=== PATIENT | male | born 1940 | race Caucasian/White ===

== ENCOUNTER 2017-09-15 11:00 | Inpatient (IN) | payer MEDICARE, OTHER ==
[2017-09-28] MEDS ORDERED: VANCOMYCIN HCL 1,000 MG in 0.9 % SODIUM CHLORIDE 250ML 250 ML IVPB ONE (06:00)
[2017-09-28] MEDS ORDERED: FAMOTIDINE 20MG TABLET PO ONE (06:00)
[2017-09-28] MEDS ORDERED: ACETAMINOPHEN 1,000 MG/100 ML BTL IV ONE (06:00)
[2017-09-28] MEDS ORDERED: METOCLOPRAMIDE 10 MG TABLET PO ONE (06:00)
[2017-09-28] MEDS ORDERED: MECLIZINE 25 MG TABLET PO ONE (06:00)
[2017-09-28] MEDS ORDERED: CELECOXIB 100 MG CAPSULE PO ONE (06:00)
[2017-09-28] MEDS ORDERED: BUPIVACAINE LIPOSOME 266MG/20ML VIAL IV ONE (09:59)
[2017-09-28] MEDS ORDERED: VANCOMYCIN HCL 1 GM VIAL IVPB ONE (09:59)
[2017-09-28] MEDS ORDERED: BUPIVACAINE 0.5% W/EPI MPF 30 ML VIAL IVP ONE (09:59)
[2017-09-28] MEDS ORDERED: TRANEXAMIC ACID 1,000 MG/10 ML ML IV ONE (09:59)
[2017-09-28] MEDS ORDERED: TRAMADOL HCL 50 MG TABLET PO PRN ×2 (12:54)
[2017-09-28] MEDS ORDERED: KETOROLAC 30 MG/ML VIAL IVP PRN ×2 (12:54)
[2017-09-28] MEDS ORDERED: DEXTROSE 5 % AND 0.9 % NACL 1,000 ML IV PRN (12:54)
[2017-09-28] MEDS ORDERED: ONDANSETRON HCL IV 4 MG/2 ML VIAL IVP PRN (12:54)
[2017-09-28] MEDS ORDERED: ACETAMINOPHEN 325 MG TAB PO PRN (12:54)
[2017-09-28] MEDS ORDERED: ACETAMINOPHEN W/ CODEINE 300MG/60MG TABLET PO PRN ×2 (12:54)
[2017-09-28] MEDS ORDERED: ZOLPIDEM TARTRATE 5 MG TABLET PO PRN (12:54)
[2017-09-28] MEDS ORDERED: HYDROCODONE/APAP 7.5/325MG TABLET PO PRN ×2 (12:54)
[2017-09-28] MEDS ORDERED: MAGNESIUM HYDROXIDE 30 ML UDC PO PRN (12:54)
[2017-09-28] MEDS ORDERED: MORPHINE SULFATE 5 MG/ML PFS IVP PRN ×4 (12:54)
[2017-09-28] MEDS ORDERED: DIPHENHYDRAMINE HCL 25 MG CAPSULE PO PRN (12:54)
[2017-09-28] MEDS ORDERED: HYDROMORPHONE HCL 2 MG/ML VIAL IM PRN (12:54)
[2017-09-28] MEDS ORDERED: HYDROCODONE/APAP 5/325MG TABLET PO PRN ×2 (12:54)
[2017-09-28] MEDS ORDERED: ACETAMINOPHEN W/ CODEINE 300MG/30MG TABLET PO PRN ×2 (12:54)
[2017-09-28] MEDS ORDERED: PROMETHAZINE HCL 12.5 MG in 0.9 % SODIUM CHLORIDE 100ML 50 ML IVPB PRN (12:54)
[2017-09-28] MEDS ORDERED: AL HYDROX/MAG HYDROX 30ML UD PO PRN (12:54)
[2017-09-28] MEDS ORDERED: NALOXONE 0.4 MG/1 ML VIAL IVP PRN (12:54)
[2017-09-28] MEDS ORDERED: HYDROMORPHONE HCL 1MG/ML **SYRINGE IM PRN (12:54)
[2017-09-28] MEDS ORDERED: BISACODYL 10 MG SUPP RC PRN (12:54)
[2017-09-28] MEDS ORDERED: METOCLOPRAMIDE HCL 10 MG/2 ML VIAL IVP PRN (12:54)
[2017-09-28] MEDS ORDERED: VANCOMYCIN HCL 1,000 MG in 0.9 % SODIUM CHLORIDE 250ML 250 ML IVPB SCH (13:00)
[2017-09-28] MEDS ORDERED: PROPOFOL 10 MG/ML VIAL IV ONE (14:00)
[2017-09-28] MEDS ORDERED: FENTANYL PF 100MCG/2ML VIAL IV ONE (14:00)
[2017-09-28] MEDS ORDERED: MIDAZOLAM HCL 2MG/2ML VIAL IV ONE (14:00)
[2017-09-28] MEDS ORDERED: KETOROLAC 30 MG/ML VIAL IVP ONE (14:00)
[2017-09-28] MEDS ORDERED: HYDROMORPHONE HCL 2 MG/ML VIAL IV ONE (14:00)
[2017-09-28 14:02] LABS: ABO GROUP A; ANTIBODY SCREEN NEGATIVE (NEGATIVE); RH TYPE POSITIVE
[2017-09-28] MEDS: FERROUS SULFATE 325 MG TAB PO SCH (21:27)
[2017-09-28] MEDS: DOCUSATE SODIUM 100 MG CAPSULE PO SCH (21:28)
[2017-09-29] MEDS: VANCOMYCIN HCL 1,000 MG in 0.9 % SODIUM CHLORIDE 250ML 250 ML IVPB SCH ×2 (01:57→12:36)
[2017-09-29 06:41] LABS: HEMATOCRIT 39.2 % (42.0-52.0); HEMOGLOBIN 13.3 gm/dl (14.0-18.0)
--- NOTE | 2017-09-29 07:48 | Operative Note ---
DATE: 09/28/2017. PREOPERATIVE DIAGNOSIS: ENDSTAGE LEFT KNEE ARTHROSIS. POSTOPERATIVE DIAGNOSIS: ENDSTAGE LEFT KNEE ARTHROSIS. OPERATION: Left total knee arthroplasty. SURGEON: Catracho Hussein M.D. ANESTHESIA: Spinal, Zuleyka Garland CRNA COMPLICATIONS: None. ESTIMATED BLOOD LOSS: Minimal. TOURNIQUET TIME: A total of 60 minutes. OPERATIVE FINDINGS: Ciay-eq-tetr medial compartment arthrosis. COMPONENTS PLACED: A [employer] Journey II Oxinium total knee arthroplasty system, size 8 femoral component, a size 7 tibial component, a 9.0 mm thick tibial poly insert, and a 38 mm cemented patellar component, 2.0 gm vancomycin cement. INDICATIONS: This is an 75-year-old male who has endstage knee arthrosis for several years. He has failed nonoperative treatments and wished to proceed with a knee replacement. I explained all risks and benefits of surgery in detail for the diagnosis and procedures including but not limited to infection, nerve injury, vessel injury, persistent pain, stiffness, numbness and tingling in the knee, periprosthetic fracture, need for resection arthroplasty should the components become infected or loosen, nerve injury, vessel injury, blood clot, and need for further procedures. All of his questions were answered. The treatment and course were outlined and he agreed to proceed. PROCEDURE: The patient was brought to the operating room and was placed in the supine position and marked for surgery. Spinal anesthesia induced. His left lower extremity and knee was prepped and draped in sterile fashion. The left knee was prepped again with ChloraPrep and draped. Intraoperative time out was performed. The leg was exsanguinated with Esmarch. Next, it was injected with 0.5% Marcaine with epinephrine and the knee was flexed. The tourniquet was inflated to 250 mm Hg pressure. The skin and subcutaneous tissue were dissected down. Incised the capsule medially around the medial border of the patella to the tibial tubercle. Incised the vastus medialis in line with its fibers in a mid vastus approach. I everted the patella and partially resected the retropatellar fat pad. I flexed the knee. He had [id number] medial compartment arthrosis. I drilled an intracondylar drill hole and inserted the intramedullary guide sherry. I set the cutting jig on the distal femoral, pinned it in the +2.0 mm position, and cut the distal femur. I placed a sizing jig on the distal femur and it sized to be size 8. Through the pin holes, we placed the size 8 cutting jig. We dialed in the anterior cut +2.0 mm so it would come out flush without a notch. We cut that cut, and it was a good cut. We pinned the cutting jig and cut the remaining chamfer cuts. Placed a size 8 femoral trial component, and it fit nicely. I centered it, pinned it, and then removed the osteophytes off the periphery. I inserted the femoral resection collet and reamed out with a box osteotome cruciate bone block. Attention was turned to the tibia. Placed the extra-alignment jig in the tibia , seated the spikes in the intertubercular groove. I placed the alignment sherry at the center of the tubercle. I pinned the cutting jig provisionally using the referencing status for a 7.0 mm cut off the higher lateral plateau. I then rechecked alignment of the cutting jig using a drop sherry sitting on the tibial anatomic access, and we cut the tibia. Next we removed osteophytes off the posterior femoral condyles and checked the flexion and extension gaps. We had symmetric flexion and extension gaps with a 9.0 mm thick poly insert. This allowed for 2.0 to 3.0 mm of varus and valgus laxity and flexion and extension. Overall alignment in extension was anatomic in valgus orientation with alignment sherry centered on the hip joint and ankle joint. Next took the knee into flexion and sized the tibial baseplate to be size 7. Replaced all components. Again we set the rotation tibial baseplate in extension using the alignment sherry centered on the hip joint and ankle joint. Cut the electrocautery ferris off the laser ferris on the tibial baseplate. Attention was turned to the patella. I measured the patella and it was 25 mm. I set the cutting jig. I cut the patella and measured it, and it was right on 16. Chamfered off the lateral patellar facet and it sized to be over 35, and we were planning to use a 38. We drilled three peg holes and placed the trial patellar component. I did a trial range of motion and mixed cement. The patella tracked nicely with full extension and flexion to 140 degrees. Again, symmetric flexion and extension gaps were found. Next we mixed cement. I changed gloves and brought in a clean sheet. We then set the tibial base plate on the tibia off the previous ferris and pinned it in place. I then reamed out and keel punched a keel hole. Next I placed a bone plug in the femoral canal hole. We copiously irrigated the bony surfaces and pulse lavaged with antibiotic solution. I changed gloves and brought in a clean sheet. I precoated both surfaces. I impacted down down the tibial component first and then the femoral component. I placed the trial tibial poly liner and clamped down the patellar component. I held the knee in extension until the cement hardened. Next, I took the knee in flexion, distracted the knee with bone hook and sponge. Removed excess cement off of the edge of the components. Next we injected our mixture of 0.5% Marcaine with epinephrine, 2.0 gm tranexamic acid, and Exparel into the deep capsule mediolaterally, mediolateral periosteum, vastus medialis, and subcutaneous. Next, inserted the real tibial poly liner and verified it was interlocked mediolaterally. I found our range of motion was still the same. I irrigated copiously. Closed the capsule and vastus with running #2 Quill suture. I closed the skin with #2-0 Vicryl, and a zip line was applied after drying the skin with alcohol. We then injected the knee again and the wound periphery with 0.5% Marcaine with epinephrine. The patient tolerated the procedures well. No intraoperative complications. Sponge, needle, and drain counts correct. He was taken to the recovery room stable and neurovascularly intact. He will be discharged to the floor and will likely be discharged home tomorrow. cc: Kyle Perez M.D. Job Number: [id number] MTDD
[2017-09-29] MEDS: FERROUS SULFATE 325 MG TAB PO SCH (09:06)
[2017-09-29] MEDS: DOCUSATE SODIUM 100 MG CAPSULE PO SCH (09:07)
[2017-09-29] MEDS ORDERED: CELECOXIB 100 MG CAPSULE PO SCH (10:00)
[2017-09-29] MEDS ORDERED: RIVAROXABAN 10 MG TABLET PO SCH (10:00)
--- NOTE | 2017-09-29 10:44 | Rehab Evaluation ---
Patient Information - Patient Information Diagnosis: Left knee OA Ordered Treatment: PT Evaluate and Treat Status: Initial Evaluation Surgery: Yes (Let TKA) Date of Surgery: 09/28/17 Past Medical/Surgical Hx: PAST MEDICAL/SURGICAL HISTORY Past Surgical History SHILA CATS HERNIA REPAIR PMH - Respiratory Hx Respiratory Disorders No PMH - Cardiovascular Hx Cardiovascular Disorders Yes Exercise Tolerance Good Comment: high cholesterol PMH - Neuro Hx Neurological Disorders No PMH - GI Hx Gastrointestinal Disorders No PMH - Hx Genitourinary Disorders No PMH - Endocrine Hx Endocrine Disorders No Hx Diabetes No Hx Thyroid Disease No PMH - Musculoskeletal Hx Musculoskeletal Disorders Yes Hx Arthritis Yes: shoulders hips and knees PMH - Psych Hx Psychiatric Problems No PMH - Hematology/Oncology Hx Hematology/Oncology No Disorders Precautions: [place], Fall, Cardiac - Time With Patient Total Time Spent With Patient (Min): 30 Treatment Procedures: Detail (Patient seen bedside, sitting up side of bed ( just got back from bathroom with nurse assist), sit to stand independently, ambulated with FWW about 40 feet to stairs with FWW, WBAT, CGA only and good technique. Able to ambulate down three steps with folded walker and rail for support, verbal cues for correct technique, pivoted around and ambulated back up three steps with good tolerance. Has 5 steps at home to negotiate. Ambulated in marshall further (about 100 more feet) then back to room and into bed with SBA, able to perform exercises for knee: quad, glut and ham sets, heel slides, SLR, ankle pumps with good tolerance. Left patient with call light close, re- attached compressive stockings and cold packs on knee, tray table close.) Subjective Information - Subjective Information Per Patient (Lives with in [place] and son lives close also. Has 5 steps into house and a basement but does not need to go into basement. Has house set- up for after surgery and ready for patient to come home. To have home health initially.) Objective Data - Pain Pain Present: Yes Pain Scale Used: Numeric (1 - 10) (2-3) - Mental Status Patient Orientation: Oriented x3 - Visual Perception Appears within normal limits for therapeutic activities - ROM Within normal limits (except knee extension -3 degrees extension to about 50 degrees flexion. Encouraged patient to keep working on bending knee as able to tolerate.) - Strength/Tone Within normal limits (except left quads 3-/5, hamstrings 4/5, left hip 4/5) - Coordination Appears within normal limits for therapeutic activities - Bed Mobility Independent - Transfers Independent - Balance Balance Sitting: Good Balance Standing: Good - Sensation Intact (Minimal pain at this time.) - Gait Detail (Able to ambulate with FWW about 180 feet with CGA and WBAT left, able to tolerate stairs three steps down and three back up today with good technique. ) - Special Tests No Therapy Assessment - Therapy Assessment Detail (Patient doing very well and patient and family want to go home as early as possible today. Has passed skills for gait, exercises, stairs as long as someone with him, mobility.) Patient Education - Patient Education Teaching Topic: Equipment Use, Exercise/Activity Response: Return Demonstration Teaching Method: Discussion, Demonstration Teaching Recipient: Patient Barriers To Learning: None Problem List - Problem List Physical Therapy Problem List: Detail (Some decreased endurance yet but pain under control. Patient having some issues with exercises as well secondary to flexion causes increased pain- to be expected at this point after surgery.) Goals - Goals Physical Therapy Goals: Independent with gait with appropriate assistive device , able to tolerate exercises, mobility, stairs with appropriate assist so safe to go home with and family. Prognosis - Prognosis Good (Patient doing very well. Has passed skills to go home with family, but if still here this afternoon, we will work with him again to make sure family comfortable supervising mobility especially stairs.) Plan - Plan Physical Therapy Plan: Continue PT BID if patient still at hospital this afternoon. Purpose is safety with family assist at home.
--- NOTE | 2017-09-29 13:55 | Rehab Evaluation ---
Patient Information - Patient Information Diagnosis: Left knee OA Ordered Treatment: OT Evaluate and Treat Status: Initial Evaluation Surgery: Yes (Left TKA) Date of Surgery: 09/28/17 Past Medical/Surgical Hx: PAST MEDICAL/SURGICAL HISTORY Past Surgical History BALDEV CATS HERNIA REPAIR PMH - Respiratory Hx Respiratory Disorders No PMH - Cardiovascular Hx Cardiovascular Disorders Yes Exercise Tolerance Good Comment: high cholesterol PMH - Neuro Hx Neurological Disorders No PMH - GI Hx Gastrointestinal Disorders No PMH - Hx Genitourinary Disorders No PMH - Endocrine Hx Endocrine Disorders No Hx Diabetes No Hx Thyroid Disease No PMH - Musculoskeletal Hx Musculoskeletal Disorders Yes Hx Arthritis Yes: shoulders hips and knees PMH - Psych Hx Psychiatric Problems No PMH - Hematology/Oncology Hx Hematology/Oncology No Disorders Premorbid Status: Detail (Pt lives with in a 1 story house with basement, 4 -5 steps with baldev hand railings at the entrance. He has a walk in shower with a shower chair and an elevated toilet seat. His spouse is responsible for home mgmt, meal prep and laundry, pt is responsible for yard work. Spouse is planning to assist him with self cares after discharge. He has a 2 wheeled walker and a straight cane.) Precautions: [place], Fall - Time With Patient Total Time Spent With Patient (Min): 35 Treatment Procedures: Detail (OT eval low complexity) Subjective Information - Subjective Information Per Patient, Other (Per ) Objective Data - Pain Pain Present: Yes (3/10 pain in upper left leg) - Mental Status Patient Orientation: Oriented x3 - Visual Perception Appears within normal limits for therapeutic activities - ROM Within normal limits (Baldev UE AROM WNL) - Strength/Tone Within normal limits (Baldev UE strength WNL) - Coordination Appears within normal limits for therapeutic activities - Bed Mobility Independent (Ind with supine to sit and sit to supine.) - Transfers Independent (Ind with sit to stand from EOB.) - Balance Balance Sitting: Good Balance Standing: Good - Sensation Intact - ADL's/IADL's Detail (Pt educated re: modified dressing techniques, he verbalized learning. Pt was able to partially complete LE dressing although insisted on helping him. She reports they do everything together and she will assist him at home. The patient was agreeable with this.) Therapy Assessment - Therapy Assessment Detail (Pt and educated and verbalized learning of modified dressing technique. will be providing assistance as needed after discharge.) Problem List - Problem List Physical Therapy Problem List: Detail (Some decreased endurance yet but pain under control. Patient having some issues with exercises as well secondary to flexion causes increased pain- to be expected at this point after surgery.) Occupational Therapy Problem List: Detail (No current OT problems identified.) Goals - Goals Physical Therapy Goals: Independent with gait with appropriate assistive device , able to tolerate exercises, mobility, stairs with appropriate assist so safe to go home with and family. Occupational Therapy Goals: No current IP OT goals identified at this time. Prognosis - Prognosis Good Plan - Plan Physical Therapy Plan: Continue PT BID if patient still at hospital this afternoon. Purpose is safety with family assist at home. Occupational Therapy Plan: Discharge pt from IP OT. No further OT recommended at this time. Thank you for this referral.
[2017-09-29] MEDS ORDERED: TRANEXAMIC ACID 1,000 MG/10 ML ML IV ONE (14:21)
[2017-09-29] MEDS ORDERED: VANCOMYCIN HCL 1 GM VIAL IVPB ONE (14:21)
== END 2017-09-29 14:22 | disposition home health service (06) | DRG 470 ==
LOC: MEDSURG 09-28 12:30
PROVIDERS: ADMIT Orthopaedic Surgery; ATTEND Orthopaedic Surgery
PROC: 0SRD069 Replacement of Left Knee Joint with Oxidized Zirconium on Polyethylene Synthetic Substitute, Cemented, Open Approach (ICD-10-PCS; principal; 2017-09-28 15:00)
DX: M17.12 Unilateral primary osteoarthritis, left knee (principal); E78.00 Pure hypercholesterolemia, unspecified
CPT/HCPCS: 85014; 85018; 86850; 86900; 86901; 97165; J1885; J7050